=== PATIENT | female | born 1990 | race African-American/Black ===

== ENCOUNTER 2019-05-26 00:34 | Inpatient (IN) | payer OTHER ==
[~2019-05-26] VITALS: Ht 180.3 cm; Wt 93.0 kg
[~2019-05-26 00:34] MED LIST: AMOXICILLIN 50500 MG PO; APAP500 PO; CIPROFLOXACIN500 M1 PO; COMPAZINE10 MG PO; DERMOPLAST SPRA56 ML; FLEXERIL PO; IBUPROFEN 400400 M1 PO; IBUPROFEN 800800 M1 PO; IRON325 PO; LORTAB 5 MG/5001 TA1 PO; MOTION RELIEF25 MG; NAPROSYN500 MG PO; NOHOMEMEDICATIONS; NORCO 5-325 TA1 EACH PO; NORFLEX100 MG PO; TUCKS MEDICATE1 EAC1; [UNRECOGNIZED DRUG - OTHER]
[2019-05-26 00:37] VITALS: BP 107/54
[2019-05-26 01:31] LABS: ABSOLUTE NEUTROPHILS 8.2 thou/uL (1.4-8.2); BASOPHILS 0.8 % (0.0-2.0); EOSINOPHILS 0.1 % (0.0-3.0); HEMATOCRIT 37.5 % (37.0-47.0); HEMOGLOBIN 12.5 gm/dL (12.0-15.0); LYMPHOCYTES 19.3 % (24.0-44.0); MCH 29.2 pg (26.0-34.0); MCHC 33.4 g/dL (28.0-37.0); MCV 87.2 fL (80.0-100.0); MONOCYTES 7.8 % (1.0-8.0); PLATELET COUNT 184 thou/uL (150-400); RDW 13.8 % (10.5-14.5); WBC 11.4 thou/uL (4.0-11.0)
[2019-05-26 01:40] LABS: CALCIUM 8.6 mg/dL (8.5-10.1); CREATININE 0.8 mg/dL (0.6-1.0); POTASSIUM 3.5 mmol/L (3.5-5.1)
[2019-05-26 01:46] LABS: ALBUMIN 3.6 g/dL (3.4-5.0); DIRECT BILIRUBIN 0.4 mg/dL (<0.1-0.3); TOTAL BILIRUBIN 0.6 mg/dL (<0.1-1.0); TOTAL PROTEIN 7.4 g/dL (6.4-8.2)
[2019-05-26 03:48] VITALS: BP 114/60
[2019-05-26 04:10] VITALS: BP 114/60
[2019-05-26 04:25] VITALS: BP 123/75
--- NOTE | 2019-05-26 04:59 | NUR ---
PT ARRIVED ON UNIT FROM ER AT 0430. ADMITTED WITH CHOLELITHIASIS. GENERAL SURGERY CONSULTED. ABDOMINAL PAIN SUBSIDED WITH DOSE OF MORPHINE IN ER. DENIES PAIN NOW. DENIES NAUSEA. AMBULATING TO BATHROOM INDEPENDENTLY. RESTING COMFORTABLY. NO NEEDS VOICED. CALL LIGHT WITHIN REACH. WILL CONTINUE TO PROVIDE FREQUENT OBSERVATION.
[2019-05-26 09:03] VITALS: BP 103/65
--- NOTE | 2019-05-26 14:45 | NUR ---
PT ADMITTED RELATED TO CHOLECYSTITIS. CM REVIEWED CHART AND SPOKE WITH CARE TEAM. CM MET WITH PT AND SIG OTHER AT BEDSIDE THIS DAY. PT IS A&O X4. CM ROLE INTRODUCED. PT INDICATED SHE LIVES IN A HOUSE WITH SIG OTHER AND 2 KIDS WITH 13 STEPS TO ENTER. 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 PT INDICATED NO DME OR HH HX TREATER HELPER. 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 PT INDICATED SHE PLANS TO DC HOME ONCE MEDICALLY STABLE. CM TO FOLLOW INDICATED WITH DC PLANNING.
[2019-05-26 20:07] VITALS: BP 106/75
[2019-05-27 00:12] VITALS: BP 104/54
--- NOTE | 2019-05-27 04:16 | NUR ---
ASSUMED CARE OF PATIENT AT 1999. ASSESSMENT CHARTED. MEDICATIONS GIVEN PER MAR WITH RN ASSISTANCE. PT IS A&OX4, VSS, AND VOICES A PAIN LEVEL OF 5. THE PAIN IS R FLANK PAIN BUT PATIENT REFUSED MEDICATIONS FOR FEAR OF NAUSEA BECAUSE OF TAKING THEM ON AN EMPTY STOMACH. SPRAY MAKER PROVIDER NOTIFIED SHORTLY AFTER FOR DIET ORDER CHANGE. PATIENT IS UP WITH ASSIST PRN. SHE IS ABLE TO GET UP BY HERSELF WITH STEADY GAIT AND NO WEAKNESS. HER ONLY CONCERN FOR TONIGHT IS TO GET ENOUGH REST AND BE ABLE TO EAT. PATIENT WILL BE NPO AFTER MIDNIGHT PER TELEPHONE ORDER. WILL CONTINUE TO MONITOR PT AND FOLLOW PLAN OF CARE.
--- NOTE | 2019-05-27 04:59 | NUR ---
AT 0445 PATIENT COMPLAINED OF PAIN. RN ADMINISTERED MORPHINE IVP. PATIENT ALSO VOICED DARK URINE AND ONLY GOT UP TO URINATE 2X THROUGHOUT NIGHT. PATIENT APPEARS TO HAVE CHILLS AND MID-BACK PAIN, SUGGESTING KIDNEY ISSUES. WILL MONITOR URINE OUTOUT WITH HAT AND CONTINUE TO MONITOR STATUS.
[2019-05-27 05:00] VITALS: BP 96/67
[2019-05-27 06:25] LABS: ABSOLUTE NEUTROPHILS 2.1 thou/uL (1.4-8.2); BASOPHILS 0.7 % (0.0-2.0); EOSINOPHILS 2.1 % (0.0-3.0); HEMATOCRIT 37.3 % (37.0-47.0); HEMOGLOBIN 12.1 gm/dL (12.0-15.0); LYMPHOCYTES 48.1 % (24.0-44.0); MCH 28.9 pg (26.0-34.0); MCHC 32.5 g/dL (28.0-37.0); MCV 89.1 fL (80.0-100.0); MONOCYTES 8.4 % (1.0-8.0); PLATELET COUNT 188 thou/uL (150-400); POLYS 40.7 % (36.0-66.0); RBC 4.18 mil/uL (4.20-5.00); RDW 14.4 % (10.5-14.5); WBC 5.1 thou/uL (4.0-11.0)
[2019-05-27 06:48] LABS: CALCIUM 7.9 mg/dL (8.5-10.1); CREATININE 0.8 mg/dL (0.6-1.0); POTASSIUM 3.8 mmol/L (3.5-5.1); TOTAL BILIRUBIN 1.7 mg/dL (<0.1-1.0); TOTAL PROTEIN 6.4 g/dL (6.4-8.2)
[2019-05-27 07:09] LABS: HAV IgM AB (ANTI-HAV IgM) Negative (Negative); HEPATITIS B SURFACE AG Negative (Negative); HEPATITIS C VIRUS AB 0.1 (0.0-0.9)
--- NOTE | 2019-05-27 08:32 | EKG ---
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
[2019-05-27 11:59] VITALS: BP 111/75
--- NOTE | 2019-05-27 15:53 | NUR ---
PT HAVING LAP JULIETA TODAY. CASE DISCUSSED WITH ATTENDING DR. FREEMAN.
--- NOTE | 2019-05-27 18:45 | NUR ---
RAT TEAM CALLED PRIOR TO DINNER. PT WAS C/O NON CARDIAC CHEST PAIN TO R SIDE AND R SHOULDER PAIN. EKG SHOWED NSR.BP WASELEVATED WAS HR. ORDERS OBTAINED FROM FOR PAIN AND ANXIETY. VSS STABLE AT THIS TIME.
[2019-05-27 20:00] VITALS: BP 117/86
--- NOTE | 2019-05-28 05:28 | NUR ---
ASSUMED PT CARE ON 05/27/19. PT HAS C/O PAIN IN HER RIGHT SHOULDER AND HER UPPER ABDOMEN. PAIN MEDICATION WAS ADMINISTERED. PT ASKED QUESTIONS ABOUT EVERYTHING BEING DONE. SHE ALSO HAD QUESTIONS ABOUT THE PROCEDURE OCCURING LATER TODAY. PT IS ON THE PHONE WITH FAMILY FREQUENTLY. PT AMBULATED IN HER ROOM. PT SAID THAT THE PAIN WAS NOT BAD. PT WAS RESTING IN THE ROOM. WILL CONTINUE TO MONITOR.
[2019-05-28 06:35] LABS: HEMATOCRIT 33.3 % (37.0-47.0); MCH 29.3 pg (26.0-34.0); RBC 3.74 mil/uL (4.20-5.00)
[2019-05-28 06:57] LABS: ALBUMIN 2.6 g/dL (3.4-5.0); CREATININE 0.7 mg/dL (0.6-1.0); POTASSIUM 3.3 mmol/L (3.5-5.1); TOTAL BILIRUBIN 0.8 mg/dL (<0.1-1.0); TOTAL PROTEIN 5.8 g/dL (6.4-8.2)
--- NOTE | 2019-05-28 08:07 | EKG ---
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
[2019-05-28 08:23] VITALS: BP 110/75
--- NOTE | 2019-05-28 14:11 | NUR ---
Pt had lap roya yesterday and ERCP today. Dc home tomorrow anticipated. Pt talking with her employer about getting her insurance benefits reinstated. No cm interventions anticipated at this time. Available if needed.
[2019-05-28 16:14] LABS: URINE BILIRUBIN 2+ (Negative); URINE BLOOD NEGATIVE (Negative); URINE CLARITY CLOUDY; URINE COLOR YELLOW; URINE GLUCOSE-RANDOM* NEGATIVE (Negative); URINE KETONES NEGATIVE (Negative); URINE LEUKOCYTES-REFLEX TRACE (Negative); URINE PROTEIN (DIPSTICK) NEGATIVE (Negative); URINE SPECIFIC GRAVITY 1.025 (1.005-1.035)
[2019-05-28 16:16] LABS: ICTOTEST (BILI CONFIRMATORY) Positive (Negative); URINE NITRITE-REFLEX POSITIVE (Negative)
[2019-05-28 16:25] LABS: AMORPHOUS URATES Many /LPF (None Seen); CASTS None Seen /LPF (None Seen); SQUAMOUS 4-10 Moderate /LPF (0-3); URINE RBC None Seen /HPF (0-2)
[2019-05-28 16:26] LABS: URINE WBC-REFLEX None Seen /HPF (0-5)
--- NOTE | 2019-05-28 17:06 | PATH ---
[facility] [address] [place] [address] PATHOLOGY RPT PROCEDURE Name: BLANCA BLANKENSHIP [place] Room #: 448-P ADM IN M.R.#: [id number] Admission: 05/26/19 Date of : 86 Discharge: Report #: [id number] Path Case #: [id number] [facility] Accession Number: [id number] . 01 Material submitted: . gallbladder - GALLBLADDER . 01 Clinician provided ICD-10: y . 01 Clinical history: . Symptomatic cholelithiasis . 02 Diagnosis: Gallbladder, cholecystectomy: - Mild chronic cholecystitis. - Cholelithiasis. - Reactive lymph node. . (IUV:mml; 05/28/2019) QLM 05/28/2019 1428 Local . 02 Electronically signed: . Jeanne Barraza MD, Pathologist NPI- [id number] . 01 Gross description: . The specimen is received in formalin, labeled "Blanca Blankenship, gallbladder", is focally disrupted, partially collapsed gallbladder measuring 6.7 cm in length and 3.0 cm in maximum diameter with a glistening, smooth and predominantly yellow serosa. A 0.8 x 0.5 x 0.4 cm soft lymph node is identified in the region of gallbladder neck. The cystic duct is patent. The gallbladder lumen contains yellow-david, viscous bile and few yellow bosselated calculi and its fragments measuring 1.7 x 1.5 x 0.5 cm in aggregate. The mucosa is david-brown and with no recognizable cholesterolosis. The wall is 0.1 cm in average thickness. Representatively submitted in A1. ([facility]; 05/27/2019) [facility] 05/27/2019 [facility] Local . 02 Pathologist provided ICD-10: K80.10 . 02 CPT . 972343 Specimen Comment: A courtesy copy of this report has been sent to [phone], [phone] Specimen Comment: [id number] [address] PATHOLOGY RPT PROCEDURE Name: BLANCA BLANKENSHIP [facility] Room #: 448-P [facility] IN .R.#: [id number] Admission: 05/26/19 Date of : 86 Discharge: Report #: [id number] Path Case #: [id number] Specimen Comment: Report sent to / DR WATT Performed at: [address], [place], [place] [id number] MD Adeel Hanna MD Phone: [phone] Performed at: [address] [id number] MD Jeanne Barraza MD Phone: [phone]
--- NOTE | 2019-05-28 17:26 | NUR ---
PT A&OX4, IV INTACT IN L HAND. AMBULATES SELF IN ROOM. NPO FOR ERCP TODAY. STILL HAS SHOULDER PAIN ON RIGHT SIDE. FAMILY AT BEDSIDE. WILL CONT POC.
[2019-05-28 17:30] VITALS: BP 122/83
--- NOTE | 2019-05-29 06:01 | NUR ---
ASSUMED PT CARE ON 05/28/19. PT WAS NOT IN ROOM AT THE BEGINING OF THE SHIFT. PT ARRIVED BACK TO THE UNIT AROUND 0. PT HAS COMPLAINTS OF ABDOMINAL PAIN. PT ASKED FOR PAIN MEDICATION. MEDICATION WAS ADMINISTERED. PT WAS LOOKING FORWARD TO EATING AND WHEN I OFFERED CLEAR LIQUIDS SHE WANTED EVERYTHING. PT WAS RESTING AND BEGAN TO ACT ANXIOUS AND HAD A COMPLAINT OF CHEST PAIN. WE EXPLAINED TO HER THAT THIS IS DUE TO THE PROCEDURE THAT SHE HAD DONE. PT WALKED IN THE LOPE[place] WITH THE AID AND SAID THAT THIS HELPED WITH THE ANXIETY AND PAIN. PT MOTHER STAYED IN THE ROOM OVERNIGHT. PT IS SLEEP IN THE ROOM. WILL CONITNUE TO MONITOR.
[2019-05-29 06:08] LABS: HEMOGLOBIN 11.1 gm/dL (12.0-15.0); MCH 29.3 pg (26.0-34.0); MCHC 32.6 g/dL (28.0-37.0); MCV 89.8 fL (80.0-100.0); RBC 3.79 mil/uL (4.20-5.00); RDW 14.1 % (10.5-14.5); WBC 6.9 thou/uL (4.0-11.0)
[2019-05-29 06:34] LABS: ALBUMIN 2.8 g/dL (3.4-5.0); CALCIUM 7.9 mg/dL (8.5-10.1); CREATININE 0.6 mg/dL (0.6-1.0); DIRECT BILIRUBIN 0.2 mg/dL (<0.1-0.3); POTASSIUM 3.5 mmol/L (3.5-5.1); TOTAL BILIRUBIN 0.5 mg/dL (<0.1-1.0); TOTAL PROTEIN 6.1 g/dL (6.4-8.2)
[2019-05-29 08:00] VITALS: BP 102/60
[2019-05-29] MEDS ORDERED: OXYCODONE HCL 55 MG PO (13:30)
[2019-05-29] MEDS ORDERED: COLACE 100 MG100 MG PO (13:31)
[2019-05-29 13:56] VITALS: BP 102/60
--- NOTE | 2019-05-29 14:24 | NUR ---
Assumed care of pt at 0700. Pt a&ox4. Pain controlled. Up ad gary. Tolerated food and drink. Discharging to home.
[2019-05-29 14:42] VITALS: BP 102/60
--- NOTE | 2019-06-02 11:53 | P ---
[facility] [place] [address] PROCEDURE REPORT Name: NAEEM BLANKENSHIP Room #: 448-P [facility] IN M.R.#: [id number] Admission: 05/26/19 Attend Phys: Mac Ashby MD Discharge: 05/29/19 Date of : 86 Report #: [id number] THIS REPORT FOR: //name// CC: Jatinder Alvarado NO PCP Mac Ashby DATE OF SERVICE: 05/28/2019 ENDOSCOPIC RETROGRADE CHOLANGIOPANCREATOGRAPHY REPORT BRIEF HISTORY: The patient is a 28-year-old woman who presented with markedly elevated liver transaminases and abdominal pain has been progressively worsening. She was found to have evidence of cholelithiasis and biliary sludge. She was taken to the operating room and underwent cholecystectomy. Intraoperative cholangiogram was completed and Dr. Lomeli reported there were multiple tiny stones and sludge in the distal duct. Therefore, ERCP was recommended. PREOPERATIVE DIAGNOSIS: Choledocholithiasis. POSTOPERATIVE DIAGNOSIS: Choledocholithiasis. MEDICATIONS: Intubation general anesthesia. ESTIMATED BLOOD LOSS: None. PROCEDURE: ERCP with endoscopic sphincterotomy. FINDINGS: Prior to intubation and general anesthesia, the procedure of ERCP was discussed with the patient as well as her father who was at her bedside. Potential risks and its complications were discussed. They indicate they understand and desire that we proceed. DESCRIPTION OF PROCEDURE: The patient was taken to the operating room and induced with general anesthesia and placed in the prone position. Subsequently, the Olympus video side-viewing endoscope was inserted in cervical esophagus and advanced through the esophagus, stomach, across the pylorus into the duodenum. In the duodenum, papilla was identified. It was normal and had normal overlying mucosa. Clear yellow bile was coming from the papilla. We started off with the procedure with a pointed to 5 sphincterotome. Initial cannulation with several attempts did not reveal intubation. We probed with guidewire without success. This catheter was switched to 4.021 and we were able to obtain deep cannulation of the common bile duct. Contrast was injected. A large stone or filling defect was not seen and was reported to have sludge and gravel-like material. The common bile duct was normal in size. The cholecystectomy stump was seen and [facility] [address] [place] [address] PROCEDURE REPORT Name: NAEEM BLANKENSHIP [place] Room #: 448-P DIS IN M.R.#: [id number] Admission: 05/26/19 Attend Phys: Mac Ashby MD Discharge: 05/29/19 Date of : 86 Report #: [id number] there was no leakage. The central portions of the intrahepatics were unremarkable. We then completed a sphincterotomy without difficulty. Bile gushed from the sphincterotomy as well as some debris. Several balloon sweeps were made and other than debris, no significant stones were seen. There were fragments of debris on the balloon as we pulled it through. The bile duct was draining very well. We were able to pull an 8-mm balloon through the sphincterotomy, inflated only with minimal difficulty. It was felt the bile duct was clear and it was draining well. The scope was withdrawn. The patient tolerated the procedure well. DISPOSITION: Choledocholithiasis, sphincterotomy and adequate bile drainage obtained. We will have her n.p.o. for 4 hours and then advanced diet as tolerated. Anticipate discharge tomorrow. <ELECTRONICALLY SIGNED> By: Jericho Rivera MD 06/02/19 1153 1947 1322 Jericho Rivera MD /nt
== END 2019-05-29 16:00 | disposition home or self-care (01) | DRG 419 ==
LOC: ER 00:34 → EROBS 03:49 → 4S 04:10 → 4E 04:21 → 4S 04:22
PROVIDERS: Emergency Medicine; Hospitalist; Internal Medicine Gastroenterology; Nurse Practitioner; Nurse Practitioner Acute Care; ADMIT Internal Medicine
PROC: 0FT44ZZ Resection of Gallbladder, Percutaneous Endoscopic Approach (ICD-10-PCS; principal; 2019-05-27)
PROC: BF121ZZ Fluoroscopy of Gallbladder using Low Osmolar Contrast (ICD-10-PCS; principal; 2019-05-27)
PROC: 0FC98ZZ Extirpation of Matter from Common Bile Duct, Via Natural or Artificial Opening Endoscopic (ICD-10-PCS; 2019-05-28)
DX: K80.10 Calculus of gallbladder with chronic cholecystitis without obstruction (principal); R74.0 Nonspecific elevation of levels of transaminase and lactic acid dehydrogenase [LDH]; F17.210 Nicotine dependence, cigarettes, uncomplicated; G43.909 Migraine, unspecified, not intractable, without status migrainosus; D72.829 Elevated white blood cell count, unspecified; Z83.3 Family history of diabetes mellitus; Z82.49 Family history of ischemic heart disease and other diseases of the circulatory system; Z71.6 Tobacco abuse counseling; Z79.899 Other long term (current) drug therapy
CPT/HCPCS: 10195; 50010; 50101; 50249; 50411; 50555; 50558; 51489; 52265; 52266; 53307; 53310; 53312; 54022; 54118; 55245; 56462; 56525; 56526; 56674; 62110; 62900; 70005

== ENCOUNTER 2019-06-02 14:43 | Emergency (ER) | payer OTHER ==
[~2019-06-02] VITALS: Ht 180.3 cm; Wt 95.3 kg
[~2019-06-02 14:43] MED LIST changes: +COLACE 100 MG100 MG PO; +OXYCODONE HCL 55 MG PO
[2019-06-02 15:25] LABS: URINE BILIRUBIN NEGATIVE (Negative); URINE BLOOD 2+ (Negative); URINE CLARITY CLEAR; URINE COLOR YELLOW; URINE GLUCOSE-RANDOM* NEGATIVE (Negative); URINE KETONES NEGATIVE (Negative); URINE LEUKOCYTES-REFLEX TRACE (Negative); URINE NITRITE-REFLEX NEGATIVE (Negative); URINE PROTEIN (DIPSTICK) NEGATIVE (Negative); URINE UROBILINOGEN 0.2 E.U./dl (0.2-1.0)
[2019-06-02 15:30] LABS: ABSOLUTE NEUTROPHILS 4.4 thou/uL (1.4-8.2); BASOPHILS 0.3 % (0.0-2.0); EOSINOPHILS 1.3 % (0.0-3.0); HEMATOCRIT 41.6 % (37.0-47.0); HEMOGLOBIN 13.9 gm/dL (12.0-15.0); LYMPHOCYTES 19.2 % (24.0-44.0); MCH 29.3 pg (26.0-34.0); MCHC 33.4 g/dL (28.0-37.0); MCV 87.6 fL (80.0-100.0); MONOCYTES 7.5 % (1.0-8.0); PLATELET COUNT 237 thou/uL (150-400); POLYS 71.7 % (36.0-66.0); RBC 4.75 mil/uL (4.20-5.00); WBC 6.1 thou/uL (4.0-11.0)
[2019-06-02 15:33] LABS: CALCIUM 9.4 mg/dL (8.5-10.1); CREATININE 0.7 mg/dL (0.6-1.0); POTASSIUM 4.1 mmol/L (3.5-5.1)
[2019-06-02 15:36] LABS: BACTERIA-REFLEX None Seen /HPF (None Seen); CASTS None Seen /LPF (None Seen); CRYSTALS None Seen /LPF (None Seen); SQUAMOUS 4-10 Moderate /LPF (0-3); URINE RBC 3-10 Few /HPF (0-2); URINE WBC-REFLEX 6-15 Few /HPF (0-5)
[2019-06-02 15:39] LABS: ALBUMIN 3.6 g/dL (3.4-5.0); TOTAL BILIRUBIN 0.5 mg/dL (<0.1-1.0)
[2019-06-02] MEDS ORDERED: ZOFRAN ODT4 MG DISSOLVE (17:00)
[2019-06-02 17:04] VITALS: BP 106/66
== END 2019-06-02 17:00 | disposition home or self-care (01) ==
LOC: ER 14:43
PROVIDERS: Physician Assistant
DX: R11.2 Nausea with vomiting, unspecified (principal); R10.84 Generalized abdominal pain; F17.210 Nicotine dependence, cigarettes, uncomplicated; Z90.49 Acquired absence of other specified parts of digestive tract